=== PATIENT | male | born 1935 | race Caucasian/White ===

== ENCOUNTER 2017-12-23 13:58 | Inpatient (IN) | payer MEDICARE ==
[~2017-12-23] VITALS: Ht 165.1 cm; Wt 58.6 kg
[~2017-12-23 13:58] MED LIST: ASPI-1197 PO; ATOR40TA69 PO; CARB-38 PO; CHOL500051 PO; FAMO-136 PO; FEXO180T94 PO; METO-391 PO; MIDO5TAB PO; WARF-67 PO; WARF4TAB72 PO
[2017-12-23] MEDS ORDERED: SODIUM CHLORIDE 0.9% 1000ML 2,000 ML IV ONE (14:47)
[2017-12-23] MEDS ORDERED: CEFTRIAXONE SODIUM 1 GM ONE (14:48)
[2017-12-23 14:51] LABS: BASOPHILS % (AUTO) 0.8 % (0.0-5.0); EOSINOPHILS % (AUTO) 0.9 % (0.0-8.0); LYMPHOCYTES % (AUTO) 3.9 % (21.0-51.0); MEAN CORPUSCULAR HEMOGLOBIN 30.4 pg (27.0-33.0); MEAN CORPUSCULAR HGB CONC 35.3 g/dL (32.0-36.0); MEAN CORPUSCULAR VOLUME 86.2 fL (79-99); MONOCYTES % (AUTO) 9.8 % (3.0-13.0); NEUTROPHILS % (AUTO) 84.6 % (40.0-77.0); NUCLEATED RED BLOOD CELLS 0.1 % (0.0-0.19); PLATELET COUNT (AUTO) 284 K/uL (130-400); RED BLOOD CELL COUNT(AUTO) 3.83 MIL/uL (4.50-6.20); RED CELL DISTRIBUTION WIDTH 14.6 % (11.0-15.5); WHITE BLOOD COUNT (AUTO) 7.8 K/uL (4.8-10.8)
[2017-12-23 15:05] LABS: APPEARANCE,URINE Cloudy (CLEAR); BILIRUBIN,URINE Negative (NEGATIVE); COLOR,URINE Yellow (YELLOW); GLUCOSE, URINE (UA) Negative (NEGATIVE); KETONES,URINE Negative (NEGATIVE); LEUKOCYTE ESTERASE ,URINE Large (NEGATIVE); NITRATE,URINE Positive (NEGATIVE); OCCULT BLOOD,URINE Large (NEGATIVE); PH,URINE 5.5 (5.0-8.0); PROTEIN,URINE POS 1+ (NEGATIVE)
[2017-12-23 15:09] LABS: INR 3.2 (0.85-1.15); PARTIAL THROMBOPLASTIN TIME 53.1 SEC (26.3-35.5); PROTHROMBIN TIME 32.8 SEC (9.6-11.6)
[2017-12-23 15:16] LABS: BACTERIA,URINE Moderate /HPF (None Seen); WBC,URINE 51-100 /HPF (0-1); YEAST,URINE BUDDING Few /HPF (None Seen)
[2017-12-23 15:17] LABS: SQUAMOUS EPITHELIAL CELL,UR 0-2 /HPF (0-2)
[2017-12-23] MEDS ORDERED: DEXTROSE 50%-WATER 50 ML DISP.SYRIN IV ONE (17:12)
[2017-12-23 17:50] LABS: ABG BASE EXCESS -0.9 mmol/L (-2.0-3.0); ABG OXYGEN SATURATION 95.1 % (95.0-99.0); ABG PCO2 32 mmHg (35-48)
[2017-12-23 18:28] LABS: CREATININE 0.9 mg/dL (0.5-1.5)
[2017-12-23] MEDS ORDERED: MEROPENEM 1 GM VIAL ONE (19:30)
[2017-12-23 22:03] VITALS: BP 131/67
[2017-12-23] MEDS: MEROPENEM 1 GM VIAL IVP SCH (22:38)
[2017-12-23] MEDS: SODIUM CHLORIDE 0.9% 1000ML 1,000 ML IV SCH (22:38)
[2017-12-23 23:05] VITALS: BP 128/77
[2017-12-23] MEDS: PANTOPRAZOLE SODIUM 40 MG TABLET.DR PO SCH (23:51)
[2017-12-24 03:15] VITALS: BP 123/57
[2017-12-24] MEDS: PANTOPRAZOLE SODIUM 40 MG TABLET.DR PO SCH ×2 (05:02→10:44)
[2017-12-24 08:00] VITALS: BP 132/65
[2017-12-24] MEDS: MEROPENEM 1 GM VIAL IVP SCH ×2 (10:43→23:03)
[2017-12-24] MEDS: ASPIRIN 81MG TAB.CHEW PO SCH (10:47)
[2017-12-24] MEDS: CARBIDOPA-LEVODOPA 25-100 TAB PO SCH ×3 (10:53→20:34)
[2017-12-24 11:00] VITALS: BP 112/51
[2017-12-24 16:00] VITALS: BP 117/65
[2017-12-24 20:00] VITALS: BP 108/70
[2017-12-24] MEDS: ATORVASTATIN CALCIUM 40 MG TABLET PO SCH (20:34)
[2017-12-24] MEDS: SODIUM CHLORIDE 0.9% 1000ML 1,000 ML IV SCH (20:34)
[2017-12-24] MEDS: METOPROLOL TARTRATE 25 MG TAB PO SCH (20:34)
[2017-12-25] VITALS: BP 118/60
[2017-12-25 04:00] VITALS: BP 130/64
[2017-12-25 06:10] LABS: HEMATOCRIT 30.5 % (42-54); MEAN CORPUSCULAR HEMOGLOBIN 30.7 pg (27.0-33.0); MEAN CORPUSCULAR HGB CONC 35.7 g/dL (32.0-36.0); MEAN CORPUSCULAR VOLUME 86.2 fL (79-99); PLATELET COUNT (AUTO) 227 K/uL (130-400); RED BLOOD CELL COUNT(AUTO) 3.54 MIL/uL (4.50-6.20); WHITE BLOOD COUNT (AUTO) 5.6 K/uL (4.8-10.8)
[2017-12-25 06:12] LABS: INR 1.78 (0.85-1.15); PROTHROMBIN TIME 18.5 SEC (9.6-11.6)
[2017-12-25 06:24] LABS: CREATININE 0.8 mg/dL (0.5-1.5); POTASSIUM 3.6 mmol/L (3.5-5.1)
[2017-12-25 07:28] LABS: BAND NEUTROPHILS % (MANUAL) 1 % (0-2); BASOPHILS % (MANUAL) 3 % (0-2); EOSINOPHILS % (MANUAL) 1 % (1-6); LYMPHOCYTES % (MANUAL) 15 % (22-44); MAN.DIFF COMMENT-IMPRESSION MANUAL DIFFERENTIAL; MONOCYTES % (MANUAL) 9 % (2-9); PLATELET MORPHOLOGY COMMENT ADEQUATE; REACTIVE LYMPHOCYTES 2 % (0-0); SEGMENTED NEUTROPHILS % 69 % (40-70)
[2017-12-25 08:00] VITALS: BP 128/65
[2017-12-25] MEDS ORDERED: Cholecalciferol (Vitamin D3) 5,000 UNIT PO SCH (09:00)
[2017-12-25] MEDS: METOPROLOL TARTRATE 25 MG TAB PO SCH ×2 (10:20→22:54)
[2017-12-25] MEDS: ASPIRIN 81MG TAB.CHEW PO SCH (10:20)
[2017-12-25] MEDS: CARBIDOPA-LEVODOPA 25-100 TAB PO SCH ×3 (10:20→22:53)
[2017-12-25] MEDS: MEROPENEM 1 GM VIAL IVP SCH ×2 (10:24→22:56)
[2017-12-25 11:00] VITALS: BP 122/71
[2017-12-25] MEDS: IPRATROPIUM/ALBUTEROL SULFATE 3 ML SOLUTION IH SCH ×2 (14:12→21:49)
[2017-12-25 16:00] VITALS: BP 105/61
[2017-12-25 20:00] VITALS: BP 120/64
[2017-12-25] MEDS ORDERED: WARFARIN SODIUM 2 MG TAB PO SCH (21:00)
[2017-12-25] MEDS: SODIUM CHLORIDE 0.9% 1000ML 1,000 ML IV SCH (22:45)
[2017-12-25] MEDS: ATORVASTATIN CALCIUM 40 MG TABLET PO SCH (22:54)
[2017-12-26] VITALS (7 sets, daily range): BP systolic 95–124; BP diastolic 56–67
[2017-12-26 06:06] LABS: INR 1.28 (0.85-1.15); PROTHROMBIN TIME 13.4 SEC (9.6-11.6)
[2017-12-26] MEDS: IPRATROPIUM/ALBUTEROL SULFATE 3 ML SOLUTION IH SCH ×3 (06:11→22:08)
[2017-12-26] MEDS ORDERED: POTASSIUM CHLORIDE 10% ELIXIR 20 MEQ/15 ML UDCUP PO PRN (06:45)
[2017-12-26] MEDS: PANTOPRAZOLE SODIUM 40 MG TABLET.DR PO SCH (07:08)
[2017-12-26] MEDS ORDERED: FUROSEMIDE 10 MG/ML 2ML VIAL IV SCH (09:00)
[2017-12-26] MEDS: CEFTRIAXONE SODIUM 1 GM IV SCH (10:23)
[2017-12-26] MEDS: CARBIDOPA-LEVODOPA 25-100 TAB PO SCH ×3 (10:24→22:35)
[2017-12-26] MEDS: ASPIRIN 81MG TAB.CHEW PO SCH (10:24)
[2017-12-26] MEDS: DOCUSATE SODIUM 100 MG CAP PO SCH ×2 (10:25→22:33)
[2017-12-26] MEDS: BENZONATATE 100 MG CAPSULE PO SCH ×3 (10:25→22:35)
[2017-12-26] MEDS: METOPROLOL TARTRATE 25 MG TAB PO SCH ×2 (10:25→22:34)
[2017-12-26] MEDS: POTASSIUM CHLORIDE 20 MEQ ERTAB PO PRN ×2 (16:06→18:58)
[2017-12-26] MEDS ORDERED: WARFARIN SODIUM 5 MG TAB PO ONE (21:00)
[2017-12-26] MEDS: ATORVASTATIN CALCIUM 40 MG TABLET PO SCH (22:35)
[2017-12-26] MEDS: SODIUM CHLORIDE 0.9% 1000ML 1,000 ML IV SCH (22:45)
[2017-12-27 03:15] VITALS: BP 103/77
[2017-12-27 03:57] LABS: INR 1.55 (0.85-1.15); PROTHROMBIN TIME 16.1 SEC (9.6-11.6)
[2017-12-27] MEDS: IPRATROPIUM/ALBUTEROL SULFATE 3 ML SOLUTION IH SCH ×4 (06:10→23:16)
[2017-12-27] MEDS: PANTOPRAZOLE SODIUM 40 MG TABLET.DR PO SCH (07:24)
[2017-12-27] MEDS ORDERED: COMPOUND PO MISCELLANEOUS 1 EACH MISC MISC PRN (07:30)
[2017-12-27] MEDS ORDERED: FUROSEMIDE 10 MG/ML 2ML VIAL IV SCH (08:00)
[2017-12-27 09:05] VITALS: BP 127/77
[2017-12-27] MEDS: DOCUSATE SODIUM 100 MG CAP PO SCH ×2 (09:30→20:37)
[2017-12-27] MEDS: ASPIRIN 81MG TAB.CHEW PO SCH (09:30)
[2017-12-27] MEDS: BENZONATATE 100 MG CAPSULE PO SCH ×3 (09:30→20:37)
[2017-12-27] MEDS: METOPROLOL TARTRATE 25 MG TAB PO SCH ×2 (09:30→20:38)
[2017-12-27] MEDS: CARBIDOPA-LEVODOPA 25-100 TAB PO SCH ×3 (09:30→20:38)
[2017-12-27] MEDS: CEFTRIAXONE SODIUM 1 GM IV SCH (09:30)
[2017-12-27] MEDS ORDERED: CEFTAZIDIME 1GM+NS 50ML 50 ML IV SCH (11:45)
[2017-12-27] MEDS ORDERED: VANCOMYCIN PROTOCOL PER PHARMACY IV SCH (11:45)
[2017-12-27 11:56] VITALS: BP_SYST 103; BP_SYST 133; BP_DIAS 105; BP_DIAS 54
[2017-12-27] MEDS ORDERED: VANCOMYCIN 750MG + NS 250 ML IV SCH ×2 (12:30)
[2017-12-27] MEDS ORDERED: COMPOUND IV REFRIGERATED 1 EACH IVSOLN MISC PRN (12:45)
[2017-12-27] MEDS: CEFTAZIDIME PENTAHYDRATE 1 GM/VIAL IVP SCH ×2 (13:11→20:36)
[2017-12-27 16:36] VITALS: BP 137/73
[2017-12-27] MEDS: ACETYLCYSTEINE 20% 200MG/ML 4ML VIAL IH SCH ×2 (18:52→23:17)
[2017-12-27 19:22] VITALS: BP 152/71
[2017-12-27] MEDS: ATORVASTATIN CALCIUM 40 MG TABLET PO SCH (20:37)
[2017-12-27] MEDS: VANCOMYCIN 500MG+NS 100 ML IV SCH (20:37)
[2017-12-27] MEDS ORDERED: WARFARIN SODIUM 2.5 MG TAB PO SCH (21:00)
[2017-12-27] MEDS: SODIUM CHLORIDE 0.9% 1000ML 1,000 ML IV SCH (22:45)
[2017-12-27 23:26] VITALS: BP_SYST 128; BP_SYST 129; BP_DIAS 65; BP_DIAS 97
[2017-12-28] MEDS ORDERED: GUAIFENESIN-CODEINE 5 ML SYRUP PO PRN
[2017-12-28 03:26] VITALS: BP 109/63
[2017-12-28 03:47] LABS: HEMATOCRIT 31.1 % (42-54); MEAN CORPUSCULAR HEMOGLOBIN 30.2 pg (27.0-33.0); MEAN CORPUSCULAR HGB CONC 35.6 g/dL (32.0-36.0); MEAN CORPUSCULAR VOLUME 84.6 fL (79-99); PLATELET COUNT (AUTO) 271 K/uL (130-400); RED BLOOD CELL COUNT(AUTO) 3.68 MIL/uL (4.50-6.20); RED CELL DISTRIBUTION WIDTH 14.9 % (11.0-15.5); WHITE BLOOD COUNT (AUTO) 8.5 K/uL (4.8-10.8)
[2017-12-28 03:53] LABS: INR 2.37 (0.85-1.15); POTASSIUM 4.4 mmol/L (3.5-5.1); PROTHROMBIN TIME 24.5 SEC (9.6-11.6)
[2017-12-28] MEDS: ACETYLCYSTEINE 20% 200MG/ML 4ML VIAL IH SCH ×4 (06:19→23:22)
[2017-12-28] MEDS: IPRATROPIUM 0.5 MG/2.5 ML INH IH SCH ×4 (06:19→23:22)
[2017-12-28] MEDS: GUAIFENESIN-CODEINE 5 ML SYRUP PO SCH ×3 (07:05→20:33)
[2017-12-28] MEDS: PANTOPRAZOLE SODIUM 40 MG TABLET.DR PO SCH (07:05)
[2017-12-28 08:00] VITALS: BP 120/63
[2017-12-28] MEDS: ASPIRIN 81MG TAB.CHEW PO SCH (09:00)
[2017-12-28] MEDS: CARBIDOPA-LEVODOPA 25-100 TAB PO SCH ×2 (09:00→14:00)
[2017-12-28] MEDS: METOPROLOL TARTRATE 25 MG TAB PO SCH (09:00)
[2017-12-28] MEDS: DOCUSATE SODIUM 100 MG CAP PO SCH ×2 (09:00→20:36)
[2017-12-28] MEDS: CEFTAZIDIME PENTAHYDRATE 1 GM/VIAL IVP SCH (09:56)
[2017-12-28] MEDS: VANCOMYCIN 500MG+NS 100 ML IV SCH (09:56)
[2017-12-28 11:00] VITALS: BP 128/67
[2017-12-28] MEDS: DEXTROSE 5%-LACTATED RINGERS 1,000 ML IV SCH (11:59)
[2017-12-28 16:00] VITALS: BP 130/65
[2017-12-28 19:20] VITALS: BP 147/78
[2017-12-28] MEDS: SODIUM CHLORIDE 0.9% 1000ML 1,000 ML IV SCH (22:45)
[2017-12-29] MEDS: DEXTROSE 5%-LACTATED RINGERS 1,000 ML IV SCH ×2 (01:26→19:08)
[2017-12-29] MEDS: WARFARIN SODIUM 2.5 MG TAB PO SCH ×2 (01:26→20:26)
[2017-12-29] MEDS: CARBIDOPA-LEVODOPA 25-100 TAB PO SCH ×4 (01:27→22:29)
[2017-12-29] MEDS: CEFTAZIDIME PENTAHYDRATE 1 GM/VIAL IVP SCH ×3 (01:27→22:13)
[2017-12-29] MEDS: METOPROLOL TARTRATE 25 MG TAB PO SCH ×3 (01:27→22:13)
[2017-12-29] MEDS: ATORVASTATIN CALCIUM 40 MG TABLET PO SCH ×2 (01:27→22:13)
[2017-12-29] MEDS: VANCOMYCIN 500MG+NS 100 ML IV SCH (01:28)
[2017-12-29 04:14] LABS: INR 3.45 (0.85-1.15)
[2017-12-29 04:17] LABS: HEMATOCRIT 30.8 % (42-54); MEAN CORPUSCULAR HEMOGLOBIN 29.7 pg (27.0-33.0); MEAN CORPUSCULAR VOLUME 84.8 fL (79-99); PLATELET COUNT (AUTO) 276 K/uL (130-400); RED BLOOD CELL COUNT(AUTO) 3.64 MIL/uL (4.50-6.20); RED CELL DISTRIBUTION WIDTH 14.7 % (11.0-15.5); WHITE BLOOD COUNT (AUTO) 11.8 K/uL (4.8-10.8)
[2017-12-29 04:29] LABS: PROTHROMBIN TIME 35.4 SEC (9.6-11.6)
[2017-12-29 04:31] LABS: CREATININE 0.8 mg/dL (0.5-1.5); POTASSIUM 3.7 mmol/L (3.5-5.1)
[2017-12-29 04:55] VITALS: BP 124/65
[2017-12-29] MEDS: GUAIFENESIN-CODEINE 5 ML SYRUP PO SCH (06:00)
[2017-12-29] MEDS: PANTOPRAZOLE SODIUM 40 MG TABLET.DR PO SCH (06:30)
[2017-12-29] MEDS: ACETYLCYSTEINE 20% 200MG/ML 4ML VIAL IH SCH ×2 (06:34→10:54)
[2017-12-29] MEDS: IPRATROPIUM 0.5 MG/2.5 ML INH IH SCH ×4 (06:34→23:53)
[2017-12-29] MEDS ORDERED: VANCOMYCIN PROTOCOL PER PHARMACY IV SCH (06:45)
[2017-12-29 08:00] VITALS: BP 138/73
[2017-12-29] MEDS ORDERED: GUAIFENESIN-CODEINE 5 ML SYRUP PO PRN (08:00)
[2017-12-29] MEDS: DOCUSATE SODIUM 100 MG CAP PO SCH ×2 (09:00→22:12)
[2017-12-29] MEDS: VANCOMYCIN 750MG + NS 250 ML IV SCH ×4 (09:00→22:14)
[2017-12-29] MEDS: ASPIRIN 81MG TAB.CHEW PO SCH (10:04)
[2017-12-29] MEDS: LACTULOSE 20 GM/30 ML UDCUP PO PRN (10:05)
[2017-12-29 11:00] VITALS: BP 128/71
[2017-12-29 16:00] VITALS: BP 142/66
[2017-12-29 19:00] VITALS: BP 141/73
[2017-12-29] MEDS: DOXYCYCLINE 100MG+NS 250ML 250 ML IV SCH (19:08)
[2017-12-29] MEDS: OSELTAMIVIR PHOSPHATE 75 MG CAP PO SCH (22:12)
[2017-12-30] VITALS (7 sets, daily range): BP systolic 108–123; BP diastolic 57–74
[2017-12-30 03:58] LABS: HEMATOCRIT 34.2 % (42-54); MEAN CORPUSCULAR VOLUME 85.5 fL (79-99); PLATELET COUNT (AUTO) 338 K/uL (130-400); RED CELL DISTRIBUTION WIDTH 14.8 % (11.0-15.5); WHITE BLOOD COUNT (AUTO) 13.3 K/uL (4.8-10.8)
[2017-12-30 04:07] LABS: PARTIAL THROMBOPLASTIN TIME 76.9 SEC (26.3-35.5)
[2017-12-30 04:18] LABS: ALBUMIN 2.1 g/dL (3.5-5.0); BILIRUBIN,TOTAL 0.9 mg/dL (0.2-1.0); CREATININE 0.9 mg/dL (0.5-1.5); MAGNESIUM 1.8 mg/dL (1.80-2.40); PHOSPHORUS 2.8 mg/dL (2.5-4.9); TOTAL PROTEIN, SERUM 5.9 g/dL (6.0-8.3)
[2017-12-30 04:24] LABS: INR > 7.00 (0.85-1.15); PROTHROMBIN TIME > 63.0 SEC (9.6-11.6)
[2017-12-30] MEDS: DOXYCYCLINE 100MG+NS 250ML 250 ML IV SCH ×2 (04:49→16:48)
[2017-12-30] MEDS: IPRATROPIUM 0.5 MG/2.5 ML INH IH SCH ×4 (06:21→23:32)
[2017-12-30 06:50] LABS: INR > 7.00 (0.85-1.15); PROTHROMBIN TIME > 63.0 SEC (9.6-11.6)
[2017-12-30] MEDS ORDERED: PHYTONADIONE 10 MG/1 ML AMP SQ SCH (09:00)
[2017-12-30] MEDS: PANTOPRAZOLE SODIUM 40 MG TABLET.DR PO SCH (13:03)
[2017-12-30] MEDS: METOPROLOL TARTRATE 25 MG TAB PO SCH ×2 (13:03→21:03)
[2017-12-30] MEDS: ASPIRIN 81MG TAB.CHEW PO SCH (13:03)
[2017-12-30] MEDS: DOCUSATE SODIUM 100 MG CAP PO SCH ×2 (13:03→21:03)
[2017-12-30] MEDS: OSELTAMIVIR PHOSPHATE 75 MG CAP PO SCH ×2 (13:03→21:03)
[2017-12-30] MEDS: CARBIDOPA-LEVODOPA 25-100 TAB PO SCH ×3 (13:03→21:04)
[2017-12-30] MEDS: VANCOMYCIN 750MG + NS 250 ML IV SCH ×4 (13:04→21:03)
[2017-12-30] MEDS: CEFTAZIDIME PENTAHYDRATE 1 GM/VIAL IVP SCH ×2 (13:04→21:03)
[2017-12-30] MEDS: ACETAMINOPHEN 325 MG TAB PO PRN (16:48)
[2017-12-30] MEDS ORDERED: SODIUM CHLORIDE 0.9% 500ML 500 ML IV ONE (17:33)
[2017-12-30] MEDS: DEXTROSE 5%-LACTATED RINGERS 1,000 ML IV SCH (18:06)
[2017-12-30] MEDS: ATORVASTATIN CALCIUM 40 MG TABLET PO SCH (21:04)
[2017-12-31] MEDS: DEXTROSE 5%-LACTATED RINGERS 1,000 ML IV SCH (01:34)
[2017-12-31 03:00] VITALS: BP 121/54
[2017-12-31] MEDS: DOXYCYCLINE 100MG+NS 250ML 250 ML IV SCH ×2 (03:32→15:47)
[2017-12-31 03:51] LABS: HEMATOCRIT 25.1 % (42-54); MEAN CORPUSCULAR HEMOGLOBIN 30.4 pg (27.0-33.0); MEAN CORPUSCULAR HGB CONC 35.8 g/dL (32.0-36.0); MEAN CORPUSCULAR VOLUME 84.9 fL (79-99); PLATELET COUNT (AUTO) 276 K/uL (130-400); RED BLOOD CELL COUNT(AUTO) 2.96 MIL/uL (4.50-6.20); RED CELL DISTRIBUTION WIDTH 14.8 % (11.0-15.5); WHITE BLOOD COUNT (AUTO) 6.2 K/uL (4.8-10.8)
[2017-12-31 04:01] LABS: INR 2.08 (0.85-1.15); PARTIAL THROMBOPLASTIN TIME 59.7 SEC (26.3-35.5); PROTHROMBIN TIME 21.5 SEC (9.6-11.6)
[2017-12-31 04:06] LABS: ALBUMIN 1.8 g/dL (3.5-5.0); BILIRUBIN,TOTAL 0.7 mg/dL (0.2-1.0); CREATININE 0.8 mg/dL (0.5-1.5); MAGNESIUM 1.7 mg/dL (1.80-2.40); POTASSIUM 3.1 mmol/L (3.5-5.1); TOTAL PROTEIN, SERUM 5.1 g/dL (6.0-8.3)
[2017-12-31] MEDS: IPRATROPIUM 0.5 MG/2.5 ML INH IH SCH ×4 (06:23→23:18)
[2017-12-31] MEDS: POTASSIUM CHLORIDE 20MEQ/100ML 100 ML IV PRN ×2 (06:25→17:36)
[2017-12-31] MEDS: PANTOPRAZOLE SODIUM 40 MG TABLET.DR PO SCH (06:25)
[2017-12-31] MEDS: LIDOCAINE HCL-MPF 1% 2ML VIAL IVP PRN ×2 (06:25→17:36)
[2017-12-31 08:08] VITALS: BP 128/59
[2017-12-31] MEDS: CEFTAZIDIME PENTAHYDRATE 1 GM/VIAL IVP SCH ×2 (10:39→20:59)
[2017-12-31] MEDS: DOCUSATE SODIUM 100 MG CAP PO SCH ×2 (10:41→20:59)
[2017-12-31] MEDS: VANCOMYCIN 750MG + NS 250 ML IV SCH ×4 (10:41→20:59)
[2017-12-31] MEDS: METOPROLOL TARTRATE 25 MG TAB PO SCH ×2 (10:41→20:59)
[2017-12-31] MEDS: OSELTAMIVIR PHOSPHATE 75 MG CAP PO SCH ×2 (10:41→20:59)
[2017-12-31] MEDS: CARBIDOPA-LEVODOPA 25-100 TAB PO SCH ×3 (10:41→21:02)
[2017-12-31 12:27] VITALS: BP 117/61
[2017-12-31 16:58] VITALS: BP 127/60
[2017-12-31 19:00] VITALS: BP 113/72
[2017-12-31] MEDS: ATORVASTATIN CALCIUM 40 MG TABLET PO SCH (20:59)
[2017-12-31] MEDS: ACETAMINOPHEN 325 MG TAB PO PRN (22:12)
[2017-12-31 23:00] VITALS: BP 110/54
[2018-01-01 03:00] VITALS: BP 118/63
[2018-01-01] MEDS: DOXYCYCLINE 100MG+NS 250ML 250 ML IV SCH ×2 (03:27→16:13)
[2018-01-01 06:10] LABS: BASOPHILS % (AUTO) 0.3 % (0.0-5.0); EOSINOPHILS % (AUTO) 10.3 % (0.0-8.0); HEMATOCRIT 27.9 % (42-54); LYMPHOCYTES % (AUTO) 8.9 % (21.0-51.0); MEAN CORPUSCULAR HEMOGLOBIN 29.8 pg (27.0-33.0); MEAN CORPUSCULAR HGB CONC 35.3 g/dL (32.0-36.0); MEAN CORPUSCULAR VOLUME 84.4 fL (79-99); NEUTROPHILS % (AUTO) 69.5 % (40.0-77.0); PLATELET COUNT (AUTO) 373 K/uL (130-400); RED BLOOD CELL COUNT(AUTO) 3.31 MIL/uL (4.50-6.20); RED CELL DISTRIBUTION WIDTH 14.5 % (11.0-15.5); WHITE BLOOD COUNT (AUTO) 6.6 K/uL (4.8-10.8)
[2018-01-01 06:19] LABS: CREATININE 0.7 mg/dL (0.5-1.5); POTASSIUM 3.8 mmol/L (3.5-5.1)
[2018-01-01] MEDS: IPRATROPIUM 0.5 MG/2.5 ML INH IH SCH ×4 (06:29→23:23)
[2018-01-01 07:42] VITALS: BP 114/62
[2018-01-01 08:02] LABS: INR 1.1 (0.85-1.15); PROTHROMBIN TIME 11.5 SEC (9.6-11.6)
[2018-01-01] MEDS: METOPROLOL TARTRATE 25 MG TAB PO SCH ×2 (10:35→20:50)
[2018-01-01] MEDS: CARBIDOPA-LEVODOPA 25-100 TAB PO SCH ×3 (10:35→20:50)
[2018-01-01] MEDS: OSELTAMIVIR PHOSPHATE 75 MG CAP PO SCH ×2 (10:35→20:50)
[2018-01-01] MEDS: DOCUSATE SODIUM 100 MG CAP PO SCH ×2 (10:36→20:50)
[2018-01-01] MEDS: LACTULOSE 20 GM/30 ML UDCUP PO PRN (10:37)
[2018-01-01] MEDS: VANCOMYCIN 750MG + NS 250 ML IV SCH ×4 (10:37→20:50)
[2018-01-01] MEDS: CEFTAZIDIME PENTAHYDRATE 1 GM/VIAL IVP SCH ×2 (10:37→20:49)
[2018-01-01] MEDS: PANTOPRAZOLE SODIUM 40 MG TABLET.DR PO SCH (10:40)
[2018-01-01 12:42] VITALS: BP 133/64
[2018-01-01 16:19] VITALS: BP 177/78
[2018-01-01 19:00] VITALS: BP 144/74
[2018-01-01] MEDS: ATORVASTATIN CALCIUM 40 MG TABLET PO SCH (20:50)
[2018-01-01 23:00] VITALS: BP 135/66
[2018-01-02 03:00] VITALS: BP 122/63
[2018-01-02] MEDS: DOXYCYCLINE 100MG+NS 250ML 250 ML IV SCH ×2 (03:29→15:59)
[2018-01-02] MEDS: PANTOPRAZOLE SODIUM 40 MG TABLET.DR PO SCH (06:09)
[2018-01-02] MEDS: IPRATROPIUM 0.5 MG/2.5 ML INH IH SCH ×4 (06:19→23:22)
[2018-01-02] MEDS ORDERED: FUROSEMIDE 10 MG/ML 2ML VIAL IV SCH (07:00)
[2018-01-02 07:51] LABS: HEMATOCRIT 27.1 % (42-54); MEAN CORPUSCULAR HEMOGLOBIN 30.7 pg (27.0-33.0); MEAN CORPUSCULAR HGB CONC 36.2 g/dL (32.0-36.0); MEAN CORPUSCULAR VOLUME 84.8 fL (79-99); PLATELET COUNT (AUTO) 372 K/uL (130-400); RED CELL DISTRIBUTION WIDTH 14.6 % (11.0-15.5); WHITE BLOOD COUNT (AUTO) 7.2 K/uL (4.8-10.8)
[2018-01-02 08:00] VITALS: BP 136/72
[2018-01-02 08:12] LABS: CREATININE 0.7 mg/dL (0.5-1.5); INR 1.09 (0.85-1.15); POTASSIUM 3.4 mmol/L (3.5-5.1); PROTHROMBIN TIME 11.4 SEC (9.6-11.6)
[2018-01-02] MEDS: DOCUSATE SODIUM 100 MG CAP PO SCH ×2 (10:05→10:11)
[2018-01-02] MEDS: CARBIDOPA-LEVODOPA 25-100 TAB PO SCH ×3 (10:05→23:20)
[2018-01-02] MEDS: OSELTAMIVIR PHOSPHATE 75 MG CAP PO SCH ×2 (10:05→10:11)
[2018-01-02] MEDS: CEFTAZIDIME PENTAHYDRATE 1 GM/VIAL IVP SCH ×2 (10:05→23:19)
[2018-01-02] MEDS: VANCOMYCIN 750MG + NS 250 ML IV SCH ×4 (10:10→23:19)
[2018-01-02] MEDS: METOPROLOL TARTRATE 25 MG TAB PO SCH ×2 (10:11→23:20)
[2018-01-02 11:39] VITALS: BP 137/75
[2018-01-02 16:00] VITALS: BP 139/71
[2018-01-02 20:00] VITALS: BP 144/74
[2018-01-02 21:15] LABS: MAGNESIUM 1.5 mg/dL (1.80-2.40); POTASSIUM 3.4 mmol/L (3.5-5.1)
[2018-01-02] MEDS: MAGNESIUM 2GM PREMIX 50ML 50 ML IV SCH (21:34)
[2018-01-02] MEDS: LIDOCAINE HCL-MPF 1% 2ML VIAL IVP PRN (23:20)
[2018-01-02] MEDS: ATORVASTATIN CALCIUM 40 MG TABLET PO SCH (23:20)
[2018-01-02] MEDS: POTASSIUM CHLORIDE 20MEQ/100ML 100 ML IV PRN (23:20)
[2018-01-03] VITALS (21 sets, daily range): BP systolic 89–150; BP diastolic 53–80
[2018-01-03 05:01] LABS: INR 1.09 (0.85-1.15); PARTIAL THROMBOPLASTIN TIME 32.4 SEC (26.3-35.5); PROTHROMBIN TIME 11.4 SEC (9.6-11.6)
[2018-01-03 05:08] LABS: MAGNESIUM 2.1 mg/dL (1.80-2.40); POTASSIUM 3.9 mmol/L (3.5-5.1)
[2018-01-03] MEDS: DOXYCYCLINE 100MG+NS 250ML 250 ML IV SCH ×2 (05:55→18:17)
[2018-01-03] MEDS: PANTOPRAZOLE SODIUM 40 MG TABLET.DR PO SCH (06:01)
[2018-01-03] MEDS: IPRATROPIUM 0.5 MG/2.5 ML INH IH SCH ×4 (06:18→23:50)
[2018-01-03] MEDS: CEFTAZIDIME PENTAHYDRATE 1 GM/VIAL IVP SCH ×2 (08:33→23:46)
[2018-01-03] MEDS: DOCUSATE SODIUM 100 MG CAP PO SCH ×2 (09:00→23:47)
[2018-01-03] MEDS: CARBIDOPA-LEVODOPA 25-100 TAB PO SCH ×3 (09:00→23:47)
[2018-01-03] MEDS: METOPROLOL TARTRATE 25 MG TAB PO SCH ×2 (09:00→23:47)
[2018-01-03] MEDS: OSELTAMIVIR PHOSPHATE 75 MG CAP PO SCH (09:00)
[2018-01-03] MEDS: VANCOMYCIN 750MG + NS 250 ML IV SCH ×4 (13:00→23:46)
[2018-01-03] MEDS: ATORVASTATIN CALCIUM 40 MG TABLET PO SCH (23:47)
[2018-01-04 04:00] VITALS: BP 118/60
[2018-01-04 04:11] LABS: HEMATOCRIT 28.1 % (42-54); MEAN CORPUSCULAR HEMOGLOBIN 28.8 pg (27.0-33.0); MEAN CORPUSCULAR VOLUME 84.9 fL (79-99); PLATELET COUNT (AUTO) 344 K/uL (130-400); RED BLOOD CELL COUNT(AUTO) 3.31 MIL/uL (4.50-6.20); RED CELL DISTRIBUTION WIDTH 15.2 % (11.0-15.5); WHITE BLOOD COUNT (AUTO) 6.2 K/uL (4.8-10.8)
[2018-01-04 04:15] LABS: INR 1.13 (0.85-1.15); PARTIAL THROMBOPLASTIN TIME 34.8 SEC (26.3-35.5); PROTHROMBIN TIME 11.8 SEC (9.6-11.6)
[2018-01-04 04:22] LABS: CREATININE 0.7 mg/dL (0.5-1.5); POTASSIUM 3.8 mmol/L (3.5-5.1)
[2018-01-04] MEDS: DOXYCYCLINE 100MG+NS 250ML 250 ML IV SCH (04:50)
[2018-01-04] MEDS: PANTOPRAZOLE SODIUM 40 MG TABLET.DR PO SCH ×2 (06:33→12:09)
[2018-01-04] MEDS: IPRATROPIUM 0.5 MG/2.5 ML INH IH SCH ×4 (06:46→23:24)
[2018-01-04 07:58] VITALS: BP 133/69
[2018-01-04 11:35] VITALS: BP 141/74
[2018-01-04] MEDS: CEFTAZIDIME PENTAHYDRATE 1 GM/VIAL IVP SCH ×2 (12:08→23:29)
[2018-01-04] MEDS: CARBIDOPA-LEVODOPA 25-100 TAB PO SCH ×2 (12:08→23:30)
[2018-01-04] MEDS: METOPROLOL TARTRATE 25 MG TAB PO SCH ×2 (12:09→23:30)
[2018-01-04] MEDS: DOCUSATE SODIUM 100 MG CAP PO SCH ×2 (12:09→23:29)
[2018-01-04 15:27] VITALS: BP 135/80
[2018-01-04 19:00] VITALS: BP 126/67
[2018-01-04 23:00] VITALS: BP 137/68
[2018-01-04] MEDS: ATORVASTATIN CALCIUM 40 MG TABLET PO SCH (23:30)
[2018-01-05 03:00] VITALS: BP 126/67
[2018-01-05] MEDS: IPRATROPIUM 0.5 MG/2.5 ML INH IH SCH ×4 (06:25→23:34)
[2018-01-05] MEDS: DOXYCYCLINE 100MG+NS 250ML 250 ML IV SCH ×2 (07:34→17:17)
[2018-01-05 07:53] VITALS: BP 125/53
[2018-01-05] MEDS: DOCUSATE SODIUM 100 MG CAP PO SCH ×2 (09:00→21:00)
[2018-01-05] MEDS: VANCOMYCIN 750MG + NS 250 ML IV SCH ×6 (09:00→23:07)
[2018-01-05] MEDS: CEFTAZIDIME PENTAHYDRATE 1 GM/VIAL IVP SCH ×2 (09:59→23:08)
[2018-01-05] MEDS: METOPROLOL TARTRATE 25 MG TAB PO SCH ×2 (09:59→23:07)
[2018-01-05] MEDS: CARBIDOPA-LEVODOPA 25-100 TAB PO SCH ×3 (10:00→23:08)
[2018-01-05 11:03] VITALS: BP 128/66
[2018-01-05 16:18] VITALS: BP 118/56
[2018-01-05] MEDS ORDERED: WARFARIN SODIUM 2 MG TAB PO SCH ×2 (17:00)
[2018-01-05 19:00] VITALS: BP 131/70
[2018-01-05] MEDS ORDERED: ENOXAPARIN SODIUM 60 MG/0.6 ML SQ SCH (21:00)
[2018-01-05 23:00] VITALS: BP 123/77
[2018-01-05] MEDS: LACTULOSE 20 GM/30 ML UDCUP PO PRN (23:07)
[2018-01-05] MEDS: ATORVASTATIN CALCIUM 40 MG TABLET PO SCH (23:07)
[2018-01-06 03:00] VITALS: BP 114/56
[2018-01-06 05:46] LABS: HEMATOCRIT 25.4 % (42-54); MEAN CORPUSCULAR HEMOGLOBIN 30.8 pg (27.0-33.0); MEAN CORPUSCULAR HGB CONC 36.2 g/dL (32.0-36.0); MEAN CORPUSCULAR VOLUME 84.9 fL (79-99); PLATELET COUNT (AUTO) 350 K/uL (130-400); RED BLOOD CELL COUNT(AUTO) 2.99 MIL/uL (4.50-6.20); RED CELL DISTRIBUTION WIDTH 15.1 % (11.0-15.5); WHITE BLOOD COUNT (AUTO) 6.3 K/uL (4.8-10.8)
[2018-01-06 05:56] LABS: CREATININE 0.8 mg/dL (0.5-1.5); MAGNESIUM 1.7 mg/dL (1.80-2.40); PHOSPHORUS 3.1 mg/dL (2.5-4.9); POTASSIUM 3.6 mmol/L (3.5-5.1)
[2018-01-06 05:59] LABS: INR 1.08 (0.85-1.15); PARTIAL THROMBOPLASTIN TIME 33.8 SEC (26.3-35.5); PROTHROMBIN TIME 11.3 SEC (9.6-11.6)
[2018-01-06] MEDS: DOXYCYCLINE 100MG+NS 250ML 250 ML IV SCH ×2 (06:09→15:03)
[2018-01-06] MEDS: PANTOPRAZOLE SODIUM 40 MG TABLET.DR PO SCH (06:09)
[2018-01-06] MEDS: IPRATROPIUM 0.5 MG/2.5 ML INH IH SCH ×4 (06:21→23:36)
[2018-01-06] MEDS ORDERED: PHARMACY COMMUNICATION MISC SCH ×2 (06:45→09:45)
[2018-01-06 07:00] VITALS: BP 125/64
[2018-01-06] MEDS: MAGNESIUM 2GM PREMIX 50ML 50 ML IV SCH (07:57)
[2018-01-06] MEDS: DOCUSATE SODIUM 100 MG CAP PO SCH ×2 (10:25→20:57)
[2018-01-06] MEDS: CEFTAZIDIME PENTAHYDRATE 1 GM/VIAL IVP SCH ×2 (10:25→20:57)
[2018-01-06] MEDS: METOPROLOL TARTRATE 25 MG TAB PO SCH ×2 (10:25→20:57)
[2018-01-06] MEDS: VANCOMYCIN 750MG + NS 250 ML IV SCH ×4 (10:25→20:58)
[2018-01-06] MEDS: CARBIDOPA-LEVODOPA 25-100 TAB PO SCH ×3 (10:25→20:57)
[2018-01-06] MEDS: ENOXAPARIN SODIUM 60 MG/0.6 ML SQ SCH (10:26)
[2018-01-06 16:00] VITALS: BP 127/59
[2018-01-06 19:10] VITALS: BP 114/56
[2018-01-06] MEDS: ATORVASTATIN CALCIUM 40 MG TABLET PO SCH (20:59)
[2018-01-06 23:05] VITALS: BP 113/54
[2018-01-07] MEDS: DOXYCYCLINE 100MG+NS 250ML 250 ML IV SCH ×2 (03:08→14:12)
[2018-01-07 04:00] VITALS: BP 120/59
[2018-01-07] MEDS: IPRATROPIUM 0.5 MG/2.5 ML INH IH SCH ×4 (06:31→23:46)
[2018-01-07] MEDS: PANTOPRAZOLE SODIUM 40 MG TABLET.DR PO SCH (06:54)
[2018-01-07 07:00] VITALS: BP 124/67
[2018-01-07] MEDS: VANCOMYCIN 750MG + NS 250 ML IV SCH ×4 (09:00→20:30)
[2018-01-07] MEDS: CARBIDOPA-LEVODOPA 25-100 TAB PO SCH ×3 (09:43→20:29)
[2018-01-07] MEDS: METOPROLOL TARTRATE 25 MG TAB PO SCH ×2 (09:43→20:29)
[2018-01-07] MEDS: DOCUSATE SODIUM 100 MG CAP PO SCH ×2 (09:43→20:29)
[2018-01-07] MEDS: CEFTAZIDIME PENTAHYDRATE 1 GM/VIAL IVP SCH ×2 (09:43→20:29)
[2018-01-07] MEDS: ENOXAPARIN SODIUM 60 MG/0.6 ML SQ SCH (09:44)
[2018-01-07 11:00] VITALS: BP 130/65
[2018-01-07 16:00] VITALS: BP 142/76
[2018-01-07 19:00] VITALS: BP 128/64
[2018-01-07] MEDS: ATORVASTATIN CALCIUM 40 MG TABLET PO SCH (20:29)
[2018-01-08] VITALS: BP 123/57
[2018-01-08] MEDS: DOXYCYCLINE 100MG+NS 250ML 250 ML IV SCH ×2 (03:09→14:27)
[2018-01-08 04:00] VITALS: BP 121/65
[2018-01-08 05:30] LABS: BASOPHILS % (AUTO) 0.6 % (0.0-5.0); EOSINOPHILS % (AUTO) 5.2 % (0.0-8.0); HEMATOCRIT 25.2 % (42-54); LYMPHOCYTES % (AUTO) 10.6 % (21.0-51.0); MEAN CORPUSCULAR HGB CONC 35.5 g/dL (32.0-36.0); MEAN CORPUSCULAR VOLUME 84.4 fL (79-99); MONOCYTES % (AUTO) 8.6 % (3.0-13.0); PLATELET COUNT (AUTO) 347 K/uL (130-400); RED BLOOD CELL COUNT(AUTO) 2.99 MIL/uL (4.50-6.20); RED CELL DISTRIBUTION WIDTH 14.9 % (11.0-15.5); WHITE BLOOD COUNT (AUTO) 7.5 K/uL (4.8-10.8)
[2018-01-08 05:37] LABS: CREATININE 0.8 mg/dL (0.5-1.5)
[2018-01-08] MEDS: IPRATROPIUM 0.5 MG/2.5 ML INH IH SCH ×4 (06:08→23:42)
[2018-01-08] MEDS: PANTOPRAZOLE SODIUM 40 MG TABLET.DR PO SCH (06:27)
[2018-01-08 08:00] VITALS: BP 135/69
[2018-01-08] MEDS: VANCOMYCIN 750MG + NS 250 ML IV SCH ×4 (09:00→21:00)
[2018-01-08] MEDS: CEFTAZIDIME PENTAHYDRATE 1 GM/VIAL IVP SCH ×2 (09:38→21:00)
[2018-01-08] MEDS: CARBIDOPA-LEVODOPA 25-100 TAB PO SCH ×3 (09:39→21:01)
[2018-01-08] MEDS: DOCUSATE SODIUM 100 MG CAP PO SCH ×2 (09:39→21:02)
[2018-01-08] MEDS: ENOXAPARIN SODIUM 60 MG/0.6 ML SQ SCH (09:39)
[2018-01-08] MEDS: METOPROLOL TARTRATE 25 MG TAB PO SCH ×2 (09:39→21:02)
[2018-01-08 11:00] VITALS: BP 111/58
[2018-01-08 16:00] VITALS: BP 136/82
[2018-01-08 19:00] VITALS: BP 148/73
[2018-01-08] MEDS: ATORVASTATIN CALCIUM 40 MG TABLET PO SCH (21:01)
[2018-01-08] MEDS: LACTULOSE 20 GM/30 ML UDCUP PO PRN (23:35)
[2018-01-09] VITALS (7 sets, daily range): BP systolic 104–146; BP diastolic 56–74
[2018-01-09] MEDS: DOXYCYCLINE 100MG+NS 250ML 250 ML IV SCH ×2 (02:55→14:56)
[2018-01-09] MEDS: PANTOPRAZOLE SODIUM 40 MG TABLET.DR PO SCH (06:09)
[2018-01-09] MEDS: IPRATROPIUM 0.5 MG/2.5 ML INH IH SCH ×4 (06:24→23:22)
[2018-01-09] MEDS: VANCOMYCIN 750MG + NS 250 ML IV SCH ×4 (10:10→20:53)
[2018-01-09] MEDS: METOPROLOL TARTRATE 25 MG TAB PO SCH ×2 (10:11→20:53)
[2018-01-09] MEDS: DOCUSATE SODIUM 100 MG CAP PO SCH ×2 (10:11→20:53)
[2018-01-09] MEDS: CARBIDOPA-LEVODOPA 25-100 TAB PO SCH ×3 (10:11→20:53)
[2018-01-09] MEDS: CEFTAZIDIME PENTAHYDRATE 1 GM/VIAL IVP SCH ×2 (10:11→20:53)
[2018-01-09] MEDS: ENOXAPARIN SODIUM 60 MG/0.6 ML SQ SCH (10:15)
[2018-01-09] MEDS: ATORVASTATIN CALCIUM 40 MG TABLET PO SCH (20:53)
[2018-01-10] MEDS: DOXYCYCLINE 100MG+NS 250ML 250 ML IV SCH ×2 (03:11→14:10)
[2018-01-10 03:59] VITALS: BP 111/61
[2018-01-10] MEDS: PANTOPRAZOLE SODIUM 40 MG TABLET.DR PO SCH (05:43)
[2018-01-10] MEDS: IPRATROPIUM 0.5 MG/2.5 ML INH IH SCH ×4 (06:22→23:17)
[2018-01-10 07:36] LABS: BASOPHILS % (AUTO) 0.6 % (0.0-5.0); EOSINOPHILS % (AUTO) 5.7 % (0.0-8.0); HEMATOCRIT 25.7 % (42-54); LYMPHOCYTES % (AUTO) 13.5 % (21.0-51.0); MEAN CORPUSCULAR HEMOGLOBIN 29.7 pg (27.0-33.0); MEAN CORPUSCULAR HGB CONC 35.1 g/dL (32.0-36.0); MEAN CORPUSCULAR VOLUME 84.7 fL (79-99); MONOCYTES % (AUTO) 10.2 % (3.0-13.0); PLATELET COUNT (AUTO) 345 K/uL (130-400); RED BLOOD CELL COUNT(AUTO) 3.03 MIL/uL (4.50-6.20); RED CELL DISTRIBUTION WIDTH 14.9 % (11.0-15.5); WHITE BLOOD COUNT (AUTO) 6.2 K/uL (4.8-10.8)
[2018-01-10 08:00] VITALS: BP 96/65
[2018-01-10] MEDS ORDERED: SILVER NITRATE APPLICATOR 1 SWAB TP SCH (08:00)
[2018-01-10] MEDS: DOCUSATE SODIUM 100 MG CAP PO SCH (09:07)
[2018-01-10] MEDS: METOPROLOL TARTRATE 25 MG TAB PO SCH ×2 (09:08→20:25)
[2018-01-10] MEDS: CARBIDOPA-LEVODOPA 25-100 TAB PO SCH ×3 (09:08→20:25)
[2018-01-10] MEDS: CEFTAZIDIME PENTAHYDRATE 1 GM/VIAL IVP SCH (09:08)
[2018-01-10 11:34] VITALS: BP 95/56
[2018-01-10 16:00] VITALS: BP 110/61
[2018-01-10 19:48] VITALS: BP 125/64
[2018-01-10] MEDS: ATORVASTATIN CALCIUM 40 MG TABLET PO SCH (20:26)
[2018-01-10] MEDS: DOCUSATE NA 100MG/10ML UDCUP PEG SCH (20:26)
[2018-01-10 23:31] VITALS: BP 103/52
[2018-01-11 03:16] VITALS: BP 130/69
[2018-01-11] MEDS: DOXYCYCLINE 100MG+NS 250ML 250 ML IV SCH ×2 (03:53→17:07)
[2018-01-11] MEDS: PANTOPRAZOLE SODIUM 40 MG TABLET.DR PO SCH (05:40)
[2018-01-11] MEDS: IPRATROPIUM 0.5 MG/2.5 ML INH IH SCH ×4 (06:26→23:51)
[2018-01-11 08:00] VITALS: BP 118/60
[2018-01-11] MEDS: VANCOMYCIN 750MG + NS 250 ML IV SCH ×6 (09:00→22:34)
[2018-01-11] MEDS: ENOXAPARIN SODIUM 60 MG/0.6 ML SQ SCH (09:00)
[2018-01-11] MEDS: METOPROLOL TARTRATE 25 MG TAB PO SCH ×2 (10:24→22:35)
[2018-01-11] MEDS: DOCUSATE NA 100MG/10ML UDCUP PEG SCH ×2 (10:24→22:34)
[2018-01-11] MEDS: CARBIDOPA-LEVODOPA 25-100 TAB PO SCH ×3 (10:24→22:34)
[2018-01-11] MEDS: ACETYLCYSTEINE 10% 100MG/ML 4ML VIAL IH SCH ×3 (11:10→23:51)
[2018-01-11 11:40] VITALS: BP 109/60
[2018-01-11 16:00] VITALS: BP 132/73
[2018-01-11 17:17] LABS: HEMATOCRIT 25.8 % (42-54); MEAN CORPUSCULAR HEMOGLOBIN 29.1 pg (27.0-33.0); MEAN CORPUSCULAR HGB CONC 34.5 g/dL (32.0-36.0); MEAN CORPUSCULAR VOLUME 84.6 fL (79-99); PLATELET COUNT (AUTO) 339 K/uL (130-400); RED BLOOD CELL COUNT(AUTO) 3.05 MIL/uL (4.50-6.20); RED CELL DISTRIBUTION WIDTH 15.2 % (11.0-15.5); WHITE BLOOD COUNT (AUTO) 8.8 K/uL (4.8-10.8)
[2018-01-11 17:31] LABS: BILIRUBIN,TOTAL 0.4 mg/dL (0.2-1.0); CREATININE 0.9 mg/dL (0.5-1.5); POTASSIUM 4.4 mmol/L (3.5-5.1)
[2018-01-11 19:15] VITALS: BP 126/65
[2018-01-11] MEDS: ATORVASTATIN CALCIUM 40 MG TABLET PO SCH (22:34)
[2018-01-11 23:05] VITALS: BP 119/59
[2018-01-12 03:05] VITALS: BP 125/58
[2018-01-12] MEDS: DOXYCYCLINE 100MG+NS 250ML 250 ML IV SCH (04:22)
[2018-01-12] MEDS: IPRATROPIUM 0.5 MG/2.5 ML INH IH SCH ×2 (06:09→11:01)
[2018-01-12] MEDS: ACETYLCYSTEINE 10% 100MG/ML 4ML VIAL IH SCH ×2 (06:09→11:00)
[2018-01-12] MEDS: PANTOPRAZOLE SODIUM 40 MG TABLET.DR PO SCH (06:17)
[2018-01-12] MEDS ORDERED: ACET1030H IH (07:25)
[2018-01-12] MEDS ORDERED: DSSL PEG (07:25)
[2018-01-12] MEDS ORDERED: IPRNEB IH (07:25)
[2018-01-12] MEDS ORDERED: ENOX60DI7 SQ (07:25)
[2018-01-12] MEDS ORDERED: ACET-2247 PO (07:25)
[2018-01-12] MEDS ORDERED: METO25 PO (07:25)
[2018-01-12] MEDS ORDERED: GUAI5SYR4 PO (07:25)
[2018-01-12 08:00] VITALS: BP 118/59
[2018-01-12] MEDS: ENOXAPARIN SODIUM 60 MG/0.6 ML SQ SCH (09:00)
[2018-01-12 12:00] VITALS: BP 128/63
[2018-01-12] MEDS: DOCUSATE NA 100MG/10ML UDCUP PEG SCH (12:14)
[2018-01-12] MEDS: CARBIDOPA-LEVODOPA 25-100 TAB PO SCH (12:14)
[2018-01-12] MEDS: METOPROLOL TARTRATE 25 MG TAB PO SCH (12:14)
[2018-01-12] MEDS ORDERED: ENOXAPARIN SODIUM 60 MG/0.6 ML SQ ONE (12:33)
== END 2018-01-12 17:15 | DRG 871 ==
LOC: EDH 13:58 → EDHIP 16:57 → 3BH 21:16
PROVIDERS: ADMIT Internal Medicine Nephrology; ATTEND Internal Medicine Nephrology
PROC: 30233K1 Transfusion of Nonautologous Frozen Plasma into Peripheral Vein, Percutaneous Approach (ICD-10-PCS; 2017-12-26)
PROC: 0DJ08ZZ Inspection of Upper Intestinal Tract, Via Natural or Artificial Opening Endoscopic (ICD-10-PCS; principal; 2018-01-03)
PROC: 02HV33Z Insertion of Infusion Device into Superior Vena Cava, Percutaneous Approach (ICD-10-PCS; 2018-01-04)
DX: A41.9 Sepsis, unspecified organism (principal); J96.20 Acute and chronic respiratory failure, unspecified whether with hypoxia or hypercapnia; J69.0 Pneumonitis due to inhalation of food and vomit; G92 Toxic encephalopathy; E46 Unspecified protein-calorie malnutrition; D68.9 Coagulation defect, unspecified; E87.1 Hypo-osmolality and hyponatremia; G20 Parkinson's disease; I48.91 Unspecified atrial fibrillation; N39.0 Urinary tract infection, site not specified; N30.00 Acute cystitis without hematuria; R13.12 Dysphagia, oropharyngeal phase; N13.9 Obstructive and reflux uropathy, unspecified; I10 Essential (primary) hypertension; D64.9 Anemia, unspecified; E11.9 Type 2 diabetes mellitus without complications; E78.5 Hyperlipidemia, unspecified; E87.6 Hypokalemia; F02.80 Dementia in other diseases classified elsewhere, unspecified severity, without behavioral disturbance, psychotic disturbance, mood disturbance, and anxiety; H91.90 Unspecified hearing loss, unspecified ear; I25.10 Atherosclerotic heart disease of native coronary artery without angina pectoris; I25.5 Ischemic cardiomyopathy; I34.1 Nonrheumatic mitral (valve) prolapse; K22.70 Barrett's esophagus without dysplasia; N31.9 Neuromuscular dysfunction of bladder, unspecified; Z66 Do not resuscitate; Z96.649 Presence of unspecified artificial hip joint; M19.90 Unspecified osteoarthritis, unspecified site; Z74.01 Bed confinement status; Z79.01 Long term (current) use of anticoagulants; Z95.2 Presence of prosthetic heart valve; Z95.1 Presence of aortocoronary bypass graft; Z95.0 Presence of cardiac pacemaker; Z93.1 Gastrostomy status; Z87.440 Personal history of urinary (tract) infections; Z82.3 Family history of stroke
CPT/HCPCS: 36415; 36430; 36600; 70450; 71045; 71250; 73070; 74230; 80048; 80053; 80202; 81001; 82009; 82803; 82948; 83605; 83735; 84100; 84132; 85025; 85027; 85610; 85730; 86850; 86900; 86901; 86927; 87040; 87088; 87186; 87804; 92610; 92611; 93005; 94640; 94664; 94667; 94668; 97039; A4218; A4344; C1894; J0696; J0713; J1650; J1940; J2185; J3370; J3430; J3475; J3480; J3490; J7030; J7040; J7070; J7608; P9017